=== PATIENT | male | born 1995 | race Caucasian/White ===

== ENCOUNTER 2024-09-06 23:11 | Emergency (ER) | payer BC, SELFPAY ==
[2024-09-06 23:26] VITALS: BP 136/93; PULSE 83; RESP 18; TEMP 36.7; O2SAT 98; BMI 21.1
[2024-09-07] MEDS: LIDOCAINE 1%-EPI 1:100,000 20 ML INFILTRATI (00:15)
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
== END 2024-09-07 01:15 | disposition home or self-care (01) ==
PROVIDERS: Emergency Provider Family Medicine
DX: S01.112A Laceration without foreign body of left eyelid and periocular area, initial encounter (principal); V86.55XA Driver of 3- or 4- wheeled all-terrain vehicle (ATV) injured in nontraffic accident, initial encounter
CPT/HCPCS: 12011; 99284; 99291